=== PATIENT | male | born 1985 | race Caucasian/White ===

== ENCOUNTER 2018-04-02 15:45 | Emergency (ER) | payer MEDICAID ==
[~2018-04-02] VITALS: Ht 165.1 cm; Wt 66.0 kg
[~2018-04-02 15:45] MED LIST: LORA1TAB PO
[2018-04-02 15:47] VITALS: Ht 165.1 cm; Wt 66.0 kg
[2018-04-02] MEDS ORDERED: FAMO-96 PO (17:16)
--- NOTE | 2018-04-02 17:31 | ERD ---
ER Documentation Chief Complaint Chief Complaint AP X 1 WEEK, +NAUSEA HPI 32-year-old male presents with one-week history of nausea after he eats fatty foods. States the problem is been happening for the last week. He is here about a week ago and received a prescription for lorazepam as they thought it was due to anxiety but medication did not help. Denies vomiting, diarrhea, recent travels, fevers, chills. Denies past medical history. Denies allergies. Denies medications. Denies surgeries. Denies alcohol, tobacco, drug use. Up to date on vaccines. ROS All systems reviewed and are negative except as per history of present illness. Medications Home Meds Active Scripts Famotidine* (Pepcid*) 20 Mg Tablet, 20 MG PO BID for GERD for 14 Days, #28 TAB Prov:MIGNON DOE 04/02/18 Lorazepam* (Lorazepam*) 1 Mg Tablet, 1 MG PO Q8, #10 TAB Prov:SANDRA CASTORENA PA-C 03/26/18 Allergies Allergies: Coded Allergies: No Known Allergy (Unverified , 04/02/18) PMhx/Soc Medical and Surgical Hx: pt denies Medical Hx, pt denies Surgical Hx Hx Alcohol Use: No Hx Substance Use: No Hx Tobacco Use: No Smoking Status: Never smoker FmHx Family History: No diabetes, No coronary disease, No other Physical Exam Vitals Vital Signs Date Temp Pulse Resp B/P (MAP) Pulse Ox O2 O2 Flow FiO2 Time Delivery Rate 04/02/18 97.4 72 16 136/80 96 15:47 (98) Physical Exam Const: No acute distress Resp: Clear to auscultation bilaterally Cardio: Regular rate and rhythm, no murmurs Abd: Soft, non tender, non distended. Normal bowel sounds Skin: No petechiae or rashes Back: No midline or flank tenderness Neur: Awake and alert Psych: Normal Mood and Affect Procedures/MDM 32-year-old male presents with one-week history of nausea after he eats fatty foods. States the problem is been happening for the last week. He is here about a week ago and received a prescription for lorazepam as they thought it was due to anxiety but medication did not help. Denies vomiting, diarrhea, recent travels, fevers, chills. I have low suspicion for cholecystitis, acute abdomen, GI block, appendicitis, or other emergent condition. Patient possibly has GERD for which she was given to a trial of Pepcid as well as instructions regarding lifestyle changes. Patient discharged with strict ER precautions. Patient advised to follow up with PMD. All questions answered at discharge. Departure Diagnosis: Primary Impression: GERD (gastroesophageal reflux disease) Esophagitis presence: without esophagitis Qualified Codes: K21.9 - Gastro- esophageal reflux disease without esophagitis Condition: Stable Patient Instructions: Gastroesophageal Reflux Disease (GERD), Gerd (Adult) Referrals: [facility] YOU HAVE RECEIVED A MEDICAL SCREENING EXAM AND THE RESULTS INDICATE THAT YOU DO NOT HAVE A CONDITION THAT REQUIRES URGENT TREATMENT IN THE EMERGENCY DEPARTMENT. FURTHER EVALUATION AND TREATMENT OF YOUR CONDITION CAN WAIT UNTIL YOU ARE SEEN IN YOUR DOCTORS OFFICE WITHIN THE NEXT 1-2 DAYS. IT IS YOUR RESPONSIBILITY TO MAKE AN APPOINTMENT FOR FOLOW-UP CARE. IF YOU HAVE A PRIMARY DOCTOR --you should call your primary doctor and schedule an appointment IF YOU DO NOT HAVE A PRIMARY DOCTOR YOU CAN CALL OUR PHYSICIAN REFERRAL HOTLINE AT IF YOU CAN NOT AFFORD TO SEE A PHYSICIAN YOU CAN CHOSE FROM THE FOLLOWING [facility] [address] [facility]. [facility] [address] [facility] [facility] [address] [facility] [facility] [address] [facility]. [facility] [address] [facility]. [facility]. [address] Additional Instructions: FOLLOW UP WITH YOUR PRIMARY CARE PHYSICIAN TOMORROW.Return to this facility if you are not improving as expected. MIGNON DOE Apr 02, 2018 17:31
== END 2018-04-02 17:28 | disposition home or self-care (01) ==
LOC: FTE 15:45
DX: K21.9 Gastro-esophageal reflux disease without esophagitis (principal)
CPT/HCPCS: 99282